=== PATIENT | male | born 1995 | race American Indian/Alaskan Native ===

== ENCOUNTER 2017-07-10 14:57 | Emergency (ER) | payer SELFPAY ==
[2017-07-10 15:38] VITALS: TEMP 98.5; O2SAT 98
[2017-07-10] MEDS ORDERED: cefTRIAXone (Rocephin) 250 mg Inj IM STA (16:13)
--- NOTE | 2017-07-10 17:19 | ED PDOC ---
Arrival/HPI - General Chief Complaint: Male Genitourinary Time Seen by Provider: 07/10/17 15:39 Historian: Patient - History of Present Illness Narrative History of Present Illness (Text): 07/10/17 17:18 22-year-old male presents today with dysuria 2 days. Patient with a history of recent unprotected sex. Denies penile discharge. Denies abdominal pain. No nausea vomiting diarrhea constipation. No chest pain or shortness of breath. Patient denies back pain. Patient denies pain in testicles. No medications have been taken at home. No other complaints. Past Medical History - Provider Review Nursing Documentation Reviewed: Yes - Travel History Have you recently traveled outside [place] w/in the past 3 mons?: No - Tetanus Immunization Tetanus Immunization: Unknown - Psychiatric Hx Psychophysiologic Disorder: No Hx Substance Use: No Family/Social History - Physician Review Nursing Documentation Reviewed: Yes Family/Social History: Unknown Family HX Smoking Status: Never Smoked Hx Alcohol Use: No Hx Substance Use: No Allergies/Home Meds Allergies/Adverse Reactions: Allergies No Known Allergies Allergy (Verified 07/10/17 15:34) Home Medications: Home Meds Medication Instructions Recorded Confirmed No Known Home Med 07/10/17 07/10/17 Review of Systems - Review of Systems Constitutional: absent: Fatigue, Fevers Respiratory: absent: SOB, Cough Cardiovascular: absent: Chest Pain, Palpitations Gastrointestinal: absent: Abdominal Pain, Nausea, Vomiting Genitourinary Male: Dysuria. absent: Frequency, Hematuria, Urinary Output Changes Neurological: absent: Headache, Dizziness Psychiatric: absent: Anxiety, Depression Physical Exam Vital Signs Reviewed: Yes Vital Signs Temp Pulse Resp BP Pulse Ox 07/10/17 15:34 98.5 F 58 L 16 118/72 98 Temperature: Afebrile Blood Pressure: Normal Pulse: Regular Respiratory Rate: Normal Appearance: Positive for: Well-Appearing, Non-Toxic, Comfortable Pain Distress: None Mental Status: Positive for: Alert and Oriented X 3 - Systems Exam Head: Present: Atraumatic Neck: Present: Normal Range of Motion Respiratory/Chest: Present: Clear to Auscultation Cardiovascular: Present: Regular Rate and Rhythm Abdomen: No: Tenderness, Rebound, Guarding Genitourinary Male: Present: Normal External Genitalia, Circumcised Penis, Other (chaparoned by dr. goldsmith). No: Penile Discharge, Testicle Tenderness, Penile Swelling, Masses, Erythema Back: Present: Normal Inspection Upper Extremity: Present: Normal ROM Lower Extremity: Present: Normal ROM Neurological: Present: GCS=15 Skin: Present: Warm, Dry, Normal Color. No: Rashes Psychiatric: Present: Alert, Oriented x 3 Medical Decision Making ED Course and Treatment: 07/10/17 17:20 Patient is nontoxic well-appearing in no distress with stable vital signs Ceftriaxone 250 mg IM Zithromax 1 g p.o. given Gonorrhea and Chlamydia cultures are pending. Advised patient to refrain from sex for 10 days followup with the primary care physician within the next 2 days or return if symptoms worsen persist or if new symptoms develop. Patient verbalizes understanding of discharge instructions and need for immediate followup. all aspects of this case were discussed the attending of record. Impression: dysuria Follow up primary care physician within the next 2 days Return if symptoms worsen persist or if new symptoms develop. - Lab Interpretations Lab Results: Lab Results 07/10/17 17:11: Urine Color Yellow, Urine Appearance Clear, Urine pH 7.0, Ur Specific [place] 1.015, Urine Protein Trace H, Urine Glucose (UA) Negative, Urine Ketones Negative, Urine Blood Negative, Urine Nitrate Negative, Urine Bilirubin Negative, Urine Urobilinogen 0.2, Ur Leukocyte Esterase Negative, Urine RBC 0 - 2, Urine WBC 2 - 5, Ur Epithelial Cells None, Urine Bacteria Few - Medication Orders Current Medication Orders: Discontinued Medications Azithromycin (Zithromax) 1,000 mg PO STAT STA PRN Reason: Protocol Stop: 07/10/17 16:14 Last Admin: 07/10/17 17:50 Dose: 1,000 mg Ceftriaxone Sodium (Rocephin) 250 mg IM STAT STA PRN Reason: Protocol Stop: 07/10/17 16:14 Last Admin: 07/10/17 17:50 Dose: 250 mg IM Administration Charges Document 07/10/17 17:50 LESLIE (Rec: 07/10/17 17:50 LESLIE [id number]) Injection Site MAR Injection Site Left Deltoid Charges for Administration # of IM Administrations 1 Disposition/Present on Arrival - Present on Arrival Any Indicators Present on Arrival: No History of DVT/PE: No History of Uncontrolled Diabetes: No Urinary Catheter: No History of Decub. Ulcer: No History Surgical Site Infection Following: None - Disposition Have Diagnosis and Disposition been Completed?: Yes Diagnosis: Dysuria Disposition: HOME/ ROUTINE Disposition Time: 17:16 Patient Plan: Discharge Patient Problems: Current Active Problems Problem Status Onset Dysuria Acute Condition: GOOD Discharge Instructions (ExitCare): Dysuria, Adult (DC) Additional Instructions: Follow up primary care physician within the next 2 days Return if symptoms worsen persist or if new symptoms develop. Referrals: Denny Delaney DO [Staff Provider] - Follow up with primary Forms: [employer] ([place])
[2017-07-10 17:56] LABS: URINE BILIRUBIN NEGATIVE (NEGATIVE); URINE BLOOD NEGATIVE (NEGATIVE); URINE GLUCOSE (UA) NEGATIVE (NEGATIVE); URINE LEUKOCYTE ESTERASE NEGATIVE Leu/uL (NEGATIVE); URINE PROTEIN TRACE mg/dL (<30 mg/dL); URINE UROBILINOGEN 0.2 E.U./dL (<1 E.U./dL)
[2017-07-10 17:58] LABS: URINE APPEARANCE CLEAR (CLEAR); URINE COLOR YELLOW (YELLOW)
[2017-07-10 18:08] LABS: URINE RBC 0 - 2 /hpf (0-2)
[2017-07-10 18:09] LABS: URINE BACTERIA FEW (NEG)
[2017-07-10 20:18] VITALS: BP 120/73; PULSE 60; RESP 17
== END 2017-07-10 18:10 | disposition home or self-care (01) ==
LOC: ED 14:57
DX: R30.0 Dysuria (principal)
CPT/HCPCS: 81001; 87086; 87491; 87591; 96372; 99283; J0696

== ENCOUNTER 2017-12-07 10:36 | Emergency (ER) | payer OTHER ==
[2017-12-07 10:59] VITALS: BMI 26.2
[2017-12-07 11:12] VITALS: RESP 18; TEMP 98.3
[2017-12-07] MEDS ORDERED: cefTRIAXone (Rocephin) 250 mg Inj IM STA (11:31)
--- NOTE | 2017-12-07 11:33 | ED PDOC ---
Arrival/HPI - General Historian: Patient - History of Present Illness Narrative History of Present Illness (Text): 12/07/17 12:15 22-year-old male presents today with a 3 week history of dysuria. Patient denies penile discharge. Patient with a history of chlamydia in the past. Patient states she has had one sexual partner for the past 8 years. He denies abdominal pain. No nausea vomiting diarrhea or constipation. He denies dizziness or weakness. No other complaints <Татьяна Sheets - Last Filed: 12/07/17 13:25> <Vitor Bradley - Last Filed: 12/10/17 18:54> - General Chief Complaint: Male Genitourinary Time Seen by Provider: 12/07/17 11:05 Past Medical History - Provider Review Nursing Documentation Reviewed: Yes - Travel History Have you recently traveled outside [place] w/in the past 3 mons?: No - Infectious Disease Hx of Infectious Diseases: None - Tetanus Immunization Tetanus Immunization: Unknown - Psychiatric Hx Psychophysiologic Disorder: No Hx Substance Use: No <Татьяна Sheets - Last Filed: 12/07/17 13:25> Family/Social History - Physician Review Nursing Documentation Reviewed: Yes Family/Social History: Unknown Family HX Smoking Status: Never Smoked Hx Alcohol Use: No Hx Substance Use: No <Татьяна Sheets - Last Filed: 12/07/17 13:25> Allergies/Home Meds <Татьяна Sheets - Last Filed: 12/07/17 13:25> <Vitor Bradley - Last Filed: 12/10/17 18:54> Allergies/Adverse Reactions: Allergies No Known Allergies Allergy (Verified 07/10/17 15:34) Review of Systems - Review of Systems Constitutional: absent: Fatigue, Fevers Respiratory: absent: SOB, Cough Cardiovascular: absent: Chest Pain, Palpitations Gastrointestinal: absent: Abdominal Pain, Nausea, Vomiting Genitourinary Male: Dysuria, Other (No testicular pain). absent: Frequency, Hematuria, Urinary Output Changes Musculoskeletal: absent: Arthralgias, Back Pain, Neck Pain Skin: absent: Rash, Pruritis Neurological: absent: Headache, Dizziness Psychiatric: absent: Anxiety, Depression <Татьяна Sheets - Last Filed: 12/07/17 13:25> Physical Exam Vital Signs Reviewed: Yes Vital Signs Temp Pulse Resp BP Pulse Ox 12/07/17 11:10 98.3 F 68 18 136/89 97 Temperature: Afebrile Blood Pressure: Normal Pulse: Regular Respiratory Rate: Normal Appearance: Positive for: Well-Appearing, Non-Toxic, Comfortable Pain Distress: None Mental Status: Positive for: Alert and Oriented X 3 - Systems Exam Head: Present: Atraumatic Neck: Present: Normal Range of Motion Respiratory/Chest: Present: Clear to Auscultation Cardiovascular: Present: Regular Rate and Rhythm Abdomen: No: Tenderness, Distention Genitourinary Male: Present: Normal External Genitalia, Circumcised Penis, Other (Chaperoned by ER EMT zari). No: Lesions, Penile Discharge, Testicle Tenderness, Penile Swelling, Masses, Erythema, Hernias Upper Extremity: Present: Normal ROM Lower Extremity: Present: Normal ROM Neurological: Present: GCS=15 Skin: Present: Warm, Dry, Normal Color. No: Rashes Psychiatric: Present: Alert, Oriented x 3 <Татьяна Sheets - Last Filed: 12/07/17 13:25> Vital Signs Temp Pulse Resp BP Pulse Ox 12/07/17 12:57 70 18 127/79 100 12/07/17 11:10 98.3 F 68 18 136/89 97 <Vitor Bradley - Last Filed: 12/10/17 18:54> Medical Decision Making ED Course and Treatment: 12/07/17 12:17 Patient is nontoxic well-appearing in no distress with stable vital signs Ceftriaxone 250 mg IM Zithromax 1 g p.o. given Gonorrhea and Chlamydia cultures are pending. Advised patient to refrain from sex for 10 days followup with the primary care physician within the next 2 days or return if symptoms worsen persist or if new symptoms develop. Patient verbalizes understanding of discharge instructions and need for immediate followup. all aspects of this case were discussed the attending of record. Impression:dysuria Follow up primary care physician within the next 2 days keflex 1 tablet twice daily x 7 days. Return if symptoms worsen persist or if new symptoms develop. 12/07/17 12:41 <Татьяна Sheets - Last Filed: 12/07/17 13:25> - Lab Interpretations Microbiology Results: Microbiology Results 12/07/17 16:08 Urine,Clean Catch Urine Culture - Final No Growth (<1,000 CFU/ML) Lab Results: Lab Results 12/07/17 11:11: Urine Color Yellow, Urine Appearance Clear, Urine pH 6.0, Ur Specific [place] 1.020, Urine Protein Negative, Urine Glucose (UA) Negative, Urine Ketones Negative, Urine Blood Negative, Urine Nitrate Negative, Urine Bilirubin Negative, Urine Urobilinogen 0.2, Ur Leukocyte Esterase Trace H, Urine RBC 0 - 2, Urine WBC 5 - 10, Ur Epithelial Cells None, Urine Bacteria Many - Medication Orders Current Medication Orders: Discontinued Medications Azithromycin (Zithromax) 1,000 mg PO STAT STA; Protocol Stop: 12/07/17 11:32 Last Admin: 12/07/17 11:42 Dose: 1,000 mg Ceftriaxone Sodium (Rocephin) 250 mg IM STAT STA; Protocol Stop: 12/07/17 11:32 Last Admin: 12/07/17 11:42 Dose: 250 mg IM Administration Charges Document 12/07/17 11:42 GMD (Rec: 12/07/17 11:43 GMD [id number]) Injection Site MAR Injection Site Right Gluteus [place] Charges for Administration # of IM Administrations 1 <Vitor Bradley - Last Filed: 12/10/17 18:54> - 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 <Vitor Bradley - Last Filed: 12/10/17 18:54> Disposition/Present on Arrival - Present on Arrival Any Indicators Present on Arrival: No History of DVT/PE: No History of Uncontrolled Diabetes: No Urinary Catheter: No History of Decub. Ulcer: No History Surgical Site Infection Following: None - Disposition Have Diagnosis and Disposition been Completed?: Yes Disposition Time: 11:32 Patient Plan: Discharge <Татьяна Sheets - Last Filed: 12/07/17 13:25> <Vitor Bradley - Last Filed: 12/10/17 18:54> - Disposition Diagnosis: Dysuria Disposition: HOME/ ROUTINE Condition: GOOD Discharge Instructions (ExitCare): Dysuria, Adult (DC), Sexually-Transmitted Diseases (DC) Additional Instructions: Follow up primary care physician within the next 2 days keflex; 1 tablet twice daily x 7 days. Return if symptoms worsen persist or if new symptoms develop. Prescriptions: Cephalexin [Keflex] 500 mg PO BID #14 capsule Referrals: Marleny Mcknight MD [Medical Doctor] - Follow up with primary [facility] [Outside] - Follow up with primary Forms: [employer] ([place]), WORK NOTE
[2017-12-07 12:37] LABS: URINE APPEARANCE CLEAR (CLEAR); URINE BILIRUBIN NEGATIVE (NEGATIVE); URINE BLOOD NEGATIVE (NEGATIVE); URINE COLOR YELLOW (YELLOW); URINE GLUCOSE (UA) NEGATIVE (NEGATIVE); URINE LEUKOCYTE ESTERASE TRACE Leu/uL (NEGATIVE); URINE PROTEIN NEGATIVE mg/dL (<30 mg/dL); URINE UROBILINOGEN 0.2 E.U./dL (<1 E.U./dL)
[2017-12-07 12:43] LABS: URINE RBC 0 - 2 /hpf (0-2)
[2017-12-07 12:44] LABS: URINE BACTERIA MANY (NEG)
[2017-12-07 12:58] VITALS: BP 127/79; PULSE 70; O2SAT 100
== END 2017-12-07 12:58 | disposition home or self-care (01) ==
LOC: ED 10:36
DX: R30.0 Dysuria (principal)
CPT/HCPCS: 81001; 87086; 87491; 87591; 96372; 99284; J0696